=== PATIENT | female | born 2000 | race Caucasian/White ===

== ENCOUNTER 2020-05-22 17:45 | Inpatient (IN) | payer BC ==
[~2020-05-22 17:45] MED LIST: Bupivacaine 0.25% 10 ML SDV ONE
[2020-05-22] MEDS ORDERED: Sodium Chloride 0.9% 10 ML Syringe FLUSH PRN (18:02)
[2020-05-22] MEDS ORDERED: Ondansetron 4 MG/2 ML SDV IVPUSH PRN ×2 (18:02→18:46)
[2020-05-22] MEDS ORDERED: Nalbuphine 10 MG/1 ML Vial IVPUSH PRN (18:02)
[2020-05-22] MEDS ORDERED: Lactated Ringers 1,000 ML ONE (18:11)
[2020-05-22] MEDS: Lactated Ringers 1,000 ML IV SCH ×3 (18:12→19:30)
[2020-05-22] MEDS ORDERED: Oxytocin/Lactated Ringers 10 UNIT/1,000 ML BAG IV SCH (18:15)
[2020-05-22] MEDS ORDERED: fentaNYL 100 MCG/2 ML SDV EPIDUR PRN (18:46)
[2020-05-22] MEDS ORDERED: ePHEDrine 50 MG/ML SDV IVPUSH PRN (18:46)
--- NOTE | 2020-05-22 18:47 | PCM.PREANE ---
Preanesthetic Assessment - Procedure Proposed Procedure: Epidural vs Laboring Spinal - Anesthesia/Transfusion/Family Hx Anesthesia History: Prior Anesthesia Without Reaction Family History of Anesthesia Reaction: No Transfusion History: No Prior Transfusion(s) Intubation History: Unknown - Review of Systems General: No Symptoms Pulmonary: No Symptoms Cardiovascular: No Symptoms Gastrointestinal: No Symptoms (GERD) Neurological: No Symptoms Other: Reports: None - Physical Assessment NPO Status Date: 05/22/20 NPO Status Time: 17:30 Vital Signs: Last Vital Signs Temp 36.8 C 05/22/20 17:46 Pulse 81 05/22/20 17:46 Resp 16 05/22/20 17:46 BP 121/83 05/22/20 17:46 Pulse Ox 100 05/22/20 17:46 Height: 1.78 m Weight: 83.007 kg ASA Class: 2 Mental Status: Alert & Oriented x3 Airway Class: Mallampati = 2 Dentition: Reports: Normal Dentition, Caries Thyro-Mental Finger Breadths: 3 Mouth Opening Finger Breadths: 3 ROM/Head Extension: Full Lungs: Clear to Auscultation, Normal Respiratory Effort Cardiovascular: Regular Rate, Regular Rhythm, No Murmurs - Lab Values: Laboratory Last Values WBC 14.85 K/mm3 (3.98-10.04) H 05/22/20 18:20 RBC 4.56 M/mm3 (3.98-5.22) 05/22/20 18:20 Hgb 12.3 gm/dl (11.2-15.7) 05/22/20 18:20 Hct 38.8 % (34.1-44.9) 05/22/20 18:20 MCV 85.1 fl (79.4-94.8) 05/22/20 18:20 MCH 27.0 pg (25.6-32.2) 05/22/20 18:20 MCHC 31.7 g/dl (32.2-35.5) L 05/22/20 18:20 RDW Std Deviation 42.1 fL (36.4-46.3) 05/22/20 18:20 Plt Count 259 K/mm3 (182-369) 05/22/20 18:20 MPV 9.3 fl (9.4-12.3) L 05/22/20 18:20 Neut % (Auto) 81.5 % (34.0-71.1) H 05/22/20 18:20 Lymph % (Auto) 11.2 % (19.3-51.7) L 05/22/20 18:20 [place] % (Auto) 6.8 % (4.7-12.5) 05/22/20 18:20 Eos % (Auto) 0.1 (0.7-5.8) L 05/22/20 18:20 Baso % (Auto) 0.1 % (0.1-1.2) 05/22/20 18:20 Neut # (Auto) 12.10 K/mm3 (1.56-6.13) H 05/22/20 18:20 Lymph # (Auto) 1.66 K/mm3 (1.18-3.74) 05/22/20 18:20 [place] # (Auto) 1.01 K/mm3 (0.24-0.36) H 05/22/20 18:20 Eos # (Auto) 0.02 K/mm3 (0.04-0.36) L 05/22/20 18:20 Baso # (Auto) 0.01 K/mm3 (0.01-0.08) 05/22/20 18:20 Above labs reviewed and noted and within acceptable ranges to proceed with epidural/spinal as requested. - Allergies Allergies/Adverse Reactions: Allergies Allergy/AdvReac Type Severity Reaction Status Date / Time No Known Allergies Allergy Verified 05/22/20 17:50 - Anesthesia Plan Pre-Op Medication Ordered: None - Acknowledgements Anesthesia Type Planned: Spinal, Epidural Pt an Appropriate Candidate for the Planned Anesthesia: Yes Alternatives and Risks of Anesthesia Discussed w Pt/Guardian: Yes Pt/Guardian Understands and Agrees with Anesthesia Plan: Yes PreAnesthesia Questionnaire KAIAWHINA History: Reports: , Other (See Below) Other OB/BYN History: PCOS - Past Surgical History Musculoskeletal Surgical History: Reports: Other (See Below) Other Musculoskeletal Surgeries/Procedures:: collar bone surgery 2014 - SUBSTANCE USE Tobacco Use Status *Q: Never Tobacco User Recreational Drug Use History: No - HOME MEDS Home Medications: Home Meds Vits #93/Iron Fum/FA [ Formula Tablet] 05/22/20 [History] - CURRENT (IN HOUSE) MEDS Current Meds: Current Medications Lactated Ringer's (Ringers, Lactated) 1,000 mls @ 100 mls/hr IV ASDIRECTED MAX Last Admin: 05/22/20 18:12 Dose: 100 mls/hr Documented by: Oxytocin/Lactated Ringer's (Pitocin In Lr 10 Units/1,000 Ml) 10 unit in 1,000 mls @ 500 mls/hr IV .CONTINUOUS MAX Nalbuphine HCl (Nubain) 10 mg IVPUSH Q2H PRN PRN Reason: Pain Ondansetron HCl (Zofran) 4 mg IVPUSH Q4H PRN PRN Reason: Nausea/Vomiting Sodium Chloride (Saline Flush) 10 ml FLUSH ASDIRECTED PRN PRN Reason: Keep Vein Open Discontinued Medications Lactated Ringer's (Ringers, Lactated) Confirm Administered Dose 1,000 mls @ as directed .ROUTE .STK-MED ONE Stop: 05/22/20 18:12 Last Admin: 05/22/20 18:38 Dose: Not Given Documented by:
[2020-05-22] MEDS ORDERED: Bupivacaine/fentaNYL/NS 100 ML Bag EPIDUR SCH (19:00)
--- NOTE | 2020-05-22 19:32 | PCM.LDHP ---
L&D History of Present Illness - General Date of Service: 05/22/20 Admit Problem/Dx: Patient Status Order with Admit Dx/Problem 05/22/20 17:46 Patient Status [ADT] Routine 05/22/20 18:03 Patient Status [ADT] Routine Admission Diagnosis/Problem Admission Diagnosis/Problem - History of Present Illness Introduction:: 20 year old G1P) at 38w3d by LMP c/w 6 week ultrasound. Presents 9 cm in active labor. PNC with Dr Pantoja complicated PCOS and elevated one hour normal three hour. Pain Score: 8 - Related Data Allergies/Adverse Reactions: Allergies Allergy/AdvReac Type Severity Reaction Status Date / Time No Known Allergies Allergy Verified 05/22/20 17:50 Home Medications: Home Meds Vits #93/Iron Fum/FA [ Formula Tablet] 05/22/20 [History] Past Medical History [employer]CH[employer]PER[employer] History: Reports: , Other (See Below) Other OB/BYN History: PCOS - Past Surgical History Musculoskeletal Surgical History: Reports: Other (See Below) Other Musculoskeletal Surgeries/Procedures:: collar bone surgery 2014 Social & Family History - Tobacco Use Tobacco Use Status *Q: Never Tobacco User - Recreational Drug Use Recreational Drug Use: No H&P Review of Systems - Review of Systems: Review Of Systems: See Below General: Reports: No Symptoms HEENT: Reports: No Symptoms Pulmonary: Reports: No Symptoms Cardiovascular: Reports: No Symptoms Gastrointestinal: Reports: No Symptoms Genitourinary: Reports: No Symptoms Musculoskeletal: Reports: No Symptoms Skin: Reports: No Symptoms Psychiatric: Reports: No Symptoms Neurological: Reports: No Symptoms Hematologic/Lymphatic: Reports: No Symptoms Immunologic: Reports: No Symptoms L&D Exam - Exam Exam: See Below - Vital Signs Vital Signs: Last Vital Signs Temp 36.8 C 05/22/20 17:46 Pulse 81 05/22/20 17:46 Resp 16 05/22/20 17:46 BP 121/83 05/22/20 17:46 Pulse Ox 100 05/22/20 17:46 Weight: 83.007 kg - OB Specific Contraction Intensity: Moderate to Strong Movement: Active Heart Tones: Present Heart Rate (FHR) Variability: Moderate (6-25 bmp) Presentation: Vertex - Land Score Land Score Cervix Position: Anterior Land Score Consistency: Soft Land Score Effacement: >80% Land Score Dilation: > 5 cm Land Score 's Station: -3 Land Score Total: 10 - Exam General: Alert, Oriented HEENT: PERRLA, Conjunctiva Clear, EACs Clear, EOMI, Hearing Intact, Mucosa Moist & [place], Nares Patent, Normal Nasal Septum, Posterior Pharynx Clear, TMs Clear Neck: Supple, Trachea Midline Lungs: Clear to Auscultation, Normal Respiratory Effort Cardiovascular: Regular Rate, Regular Rhythm GI/Abdominal Exam: Normal Bowel Sounds, Soft, Non-Tender, No Organomegaly, No Distention, No Abnormal Bruit, No Mass, Pelvis Stable Rectal Exam: Normal Exam, Normal Rectal Tone Extremities: Normal Inspection Skin: Warm, Dry, Intact Neurological: Cranial Nerves Intact, Reflexes Equal Bilateral Psychiatric: Alert, Normal Affect, Normal Mood - Patient Data Lab Results Last 24 hrs: Laboratory Results - last 24 hr 05/22/20 05/22/20 Range/Units 18:06 18:20 WBC 14.85 H (3.98-10.04) K/mm3 RBC 4.56 (3.98-5.22) M/mm3 Hgb 12.3 (11.2-15.7) gm/dl Hct 38.8 (34.1-44.9) % MCV 85.1 (79.4-94.8) fl MCH 27.0 (25.6-32.2) pg MCHC 31.7 L (32.2-35.5) g/dl RDW Std Deviation 42.1 (36.4-46.3) fL Plt Count 259 (182-369) K/mm3 MPV 9.3 L (9.4-12.3) fl Neut % (Auto) 81.5 H (34.0-71.1) % Lymph % (Auto) 11.2 L (19.3-51.7) % [place] % (Auto) 6.8 (4.7-12.5) % Eos % (Auto) 0.1 L (0.7-5.8) Baso % (Auto) 0.1 (0.1-1.2) % Neut # (Auto) 12.10 H (1.56-6.13) K/mm3 Lymph # (Auto) 1.66 (1.18-3.74) K/mm3 [place] # (Auto) 1.01 H (0.24-0.36) K/mm3 Eos # (Auto) 0.02 L (0.04-0.36) K/mm3 Baso # (Auto) 0.01 (0.01-0.08) K/mm3 SARS-CoV-2 RNA (MONY) Negative (NEGATIVE) Result Diagrams: 05/22/20 18:20 Problem List Initiated/Reviewed/Updated: Yes Orders Last 24hrs: Active Orders 24 hr Category Date Time Status Patient Status [ADT] Routine ADT 05/22/20 18:03 Active Activity as Tolerated [RC] PFP Care 05/22/20 18:02 Active Communication Order [RC] ASDIRECTED Care 05/22/20 18:02 Active Heart Tones [RC] ASDIRECTED Care 05/22/20 18:03 Active Non Stress Test [RC] PER UNIT ROUTINE Care 05/22/20 17:46 Active Notify Provider [RC] ASDIRECTED Care 05/22/20 18:46 Active Notify Provider [RC] PFP Care 05/22/20 18:02 Active Notify Provider [RC] PRN Care 05/22/20 18:02 Active Oxygen Therapy [RC] ASDIRECTED Care 05/22/20 18:45 Active Peripheral IV Care [RC] . DIRECTED Care 05/22/20 18:03 Active Pulse Oximetry [RC] ASDIRECTED Care 05/22/20 18:45 Active Vital Signs [RC] PER UNIT ROUTINE Care 05/22/20 17:46 Active BLOOD BANK HOLD SPECIMEN [BBK] Stat Lab 05/22/20 18:02 Ordered RAPID PLASMA REAGIN,RPR [CHEM] Routine Lab 05/22/20 18:20 Received Bupivacaine/fentaNYL/NS [fentaNYL/Bupivacaine/NS 2 MCG- Med 05/22/20 19:00 Active 0.125% 100 ML] 100 ml EPIDUR ASDIRECTED Lactated Ringers [Ringers, Lactated] 1,000 ml Med 05/22/20 18:15 Active IV ASDIRECTED Nalbuphine [Nubain] Med 05/22/20 18:02 Active 10 mg IVPUSH Q2H PRN Ondansetron [Zofran] Med 05/22/20 18:46 Active 4 mg IVPUSH ONETIME PRN Ondansetron [Zofran] Med 05/22/20 18:02 Active 4 mg IVPUSH Q4H PRN Oxytocin/Lactated Ringers [Pitocin in LR 10 Units/1,000 Med 05/22/20 18:15 Active ML] 10 unit in 1,000 ml IV .CONTINUOUS Sodium Chloride 0.9% [Saline Flush] Med 05/22/20 18:02 Active 10 ml FLUSH ASDIRECTED PRN ePHEDrine [ePHEDrine sulfate] Med 05/22/20 18:46 Active 5 mg IVPUSH ASDIRECTED PRN fentaNYL [Sublimaze] Med 05/22/20 18:46 Active 100 mcg EPIDUR Q3H PRN Electronic Heart Tones Ext w TOCO [WOMSER] Oth 05/22/20 18:02 Ordered Routine Electronic Heart Tones Internal [WOMSER] Per Unit Ot 05/22/20 18:02 Ordered Routine Peripheral IV Insertion Adult [OM.PC] Routine Ot 05/22/20 18:02 Ordered Resuscitation Status Routine Resus Stat 05/22/20 17:46 Ordered Medication Orders Ephedrine Sulfate (Ephedrine Sulfate) 5 mg IVPUSH ASDIRECTED PRN PRN Reason: Hypotension Fentanyl (Sublimaze) 100 mcg EPIDUR Q3H PRN PRN Reason: Pain Last Admin: 05/22/20 18:54 Dose: 100 mcg Documented by: ERIN Fentanyl/Bupivacaine HCl (Fentanyl/Bupivacaine/Ns 2 Mcg-0.125% 100 Ml) 100 ml EPIDUR ASDIRECTED MAX Lactated Ringer's (Ringers, Lactated) 1,000 mls @ 100 mls/hr IV ASDIRECTED MAX Last Admin: 05/22/20 18:53 Dose: 999 mls/hr Documented by: Infusion: 05/22/20 18:53 Dose: 100 mls/hr Documented by: Admin: 05/22/20 18:12 Dose: 100 mls/hr Documented by: DELMY Oxytocin/Lactated Ringer's (Pitocin In Lr 10 Units/1,000 Ml) 10 unit in 1,000 mls @ 500 mls/hr IV .CONTINUOUS MAX Nalbuphine HCl (Nubain) 10 mg IVPUSH Q2H PRN PRN Reason: Pain Ondansetron HCl (Zofran) 4 mg IVPUSH Q4H PRN PRN Reason: Nausea/Vomiting Ondansetron HCl (Zofran) 4 mg IVPUSH ONETIME PRN PRN Reason: Nausea/Vomiting Sodium Chloride (Saline Flush) 10 ml FLUSH ASDIRECTED PRN PRN Reason: Keep Vein Open Assessment/Plan Comment:: Term labor. EFW 7#. Spinal in place. Anticipate .
[2020-05-22] MEDS ORDERED: Calcium Carbonate 500 MG Tab.Chew PO ONE (21:50)
[2020-05-22] MEDS ORDERED: Lidocaine 1% 50 ML MDV ONE (23:06)
[2020-05-22] MEDS ORDERED: Lidocaine 1% 50 ML MDV INJECT ONE (23:15)
--- NOTE | 2020-05-22 23:37 | PCM.SN.2 ---
- Free Text/Narrative Note: Stage I - patient presented in active labor. 9 cm. Spinal placed. Progressed to complete with reassuring heart tones. Stage II - of viable male, weight pending, 9/9 APGARS at 2311. Head delivered in controlled manner over intact perineum. Body and shoulders atraumatically. Positive cry. To maternal abdomen. Stage III - Placenta delivered. Cord clamped and cut. Cord blood collected. 3vc. Small 2nd degree laceration repaired with 3-0 vicryl. EBL 300
[2020-05-22] MEDS ORDERED: Witch Hazel Medicated Pads 40/Jar TOP PRN (23:49)
[2020-05-22] MEDS ORDERED: Benzocaine/Menthol 20%-0.5% Spray 56 GM Canister TOP PRN (23:49)
[2020-05-23] MEDS: Ibuprofen 600 MG Tab PO PRN ×3 (01:00→15:03)
--- NOTE | 2020-05-23 07:36 | PCM48HPAN ---
Post Anesthesia Note - EVALUATION WITHIN 48HRS OF ANESTHETIC Vital Signs in Normal Range: Yes Patient Participated in Evaluation: Yes Respiratory Function Stable: Yes Airway Patent: Yes Cardiovascular Function Stable: Yes Hydration Status Stable: Yes Pain Control Satisfactory: Yes Nausea and Vomiting Control Satisfactory: Yes Mental Status Recovered: Yes Vital Signs: Last Vital Signs Temp 36.7 C 05/23/20 02:54 Pulse 72 05/23/20 02:54 Resp 16 05/23/20 02:54 BP 129/89 05/23/20 02:54 Pulse Ox 94 L 05/23/20 02:54 - COMMENTS/OBSERVATIONS Free Text/Narrative:: no anesthesia complications noted
[2020-05-23] MEDS: Docusate Sodium 100 MG Cap PO PRN (17:12)
--- NOTE | 2020-05-23 19:21 | PCM.SN.2 ---
- Free Text/Narrative Note: 1899 called to room to assess for spinal headache. Encouraged patient to drink lots of fluids and caffeine if headache persists. At the moment patient states,"headache is gone." This after drinking a Coke and a few glasses of water. Currently patient sitting up in bed with no complains of. Lots of education provided. Out of room at 191.
--- NOTE | 2020-05-24 09:47 | PCM.SN.2 ---
- Free Text/Narrative Note: Post Progress Note PPD #1 Late entry note from 05/23/2020 Subjective: Doing well overall. Ambulating minimally and slowly with pain with getting up. Lochia minimal. Voiding without difficulty. Tolerating regular diet without nausea or vomiting. Pain minimal at this time and able to be controlled with or al medications. Breast-feeding with minimal difficulty. Objective: Vitals: 05/22/20 05/22/20 05/22/20 19:30 20:01 20:32 Temperature Temperature [ Temporal] Pulse, 79 69 71 Peripheral Pulse, Peripheral [ Pulse Oximetry] Respiratory Rate Blood Pressure 91/61 104/62 103/64 Blood Pressure [Upper Arm] O2 Sat by Pulse Oximetry 05/22/20 05/22/20 05/22/20 21:00 23:19 23:31 Temperature Temperature [ Temporal] Pulse, 60 86 114 H Peripheral Pulse, Peripheral [ Pulse Oximetry] Respiratory Rate Blood Pressure 111/69 103/68 96/23 L Blood Pressure [Upper Arm] O2 Sat by Pulse Oximetry 05/23/20 05/23/20 05/23/20 00:01 02:54 08:07 Temperature 36.7 C 36.4 C Temperature [ Temporal] Pulse, 85 72 73 Peripheral Pulse, Peripheral [ Pulse Oximetry] Respiratory 16 16 Rate Blood Pressure 136/92 H 129/89 99/81 Blood Pressure [Upper Arm] O2 Sat by Pulse 94 L 100 Oximetry Physical Exam General: Alert and oriented, no acute distress Lungs: Unlabored breathing Heart: Regular rate ASSESSMENT: 20-year-old female -0-0-1 s/p normal vaginal delivery PPD #1, complicated by polycystic ovarian syndrome and elevated 1 hour glucose tolerance test with normal 3-hour glucose tolerance test PLAN: Doing well Breast-feeding with minimal difficulty. Assist as needed Lochia minimal. Continue to monitor for appropriate lochia. Continue routine care Anticipate discharge home tomorrow This is a late entry note from patient being seen on 05/23/2020 Wally Pantoja MD 9:45 AM 05/24/2020
--- NOTE | 2020-05-24 09:52 | PCM.SN.2 ---
- Free Text/Narrative Note: Post Progress Note PPD #2 Subjective: Doing well overall and feels like she is doing better since yesterday. Ambulating more easily today. Lochia minimal. Voiding without difficulty. Reports that she is passing flatus without having a bowel movement at this time. Tolerating regular diet without nausea or vomiting. Pain controlled with oral medications. Breast-feeding with minimal difficulty. Objective: Vitals: Vital Signs - 24 hr 05/23/20 05/23/20 05/24/20 16:33 19:25 03:23 Temperature 36.6 C 36.7 C 37.1 C Pulse, 71 79 70 Peripheral Respiratory 16 16 14 Rate Blood Pressure 100/57 L 112/75 110/71 O2 Sat by Pulse 98 100 98 Oximetry Physical Exam General: Alert and oriented, no acute distress Lungs: Clear to auscultation bilaterally Heart: Regular rate and rhythm Abdomen: Soft, minimal appropriate tenderness, non-distended, fundus midline, nontender, and 1 fingerbreadth below the umbilicus Extremities: No edema ASSESSMENT: 20-year-old female -0-0-1 s/p normal vaginal delivery PPD #2, complicated by history of polycystic ovarian syndrome and elevated 1 hour glucose tolerance test with normal 3-hour glucose tolerance test PLAN: Doing well Breast-feeding with minimal difficulty. Assist as needed Lochia minimal. Continue to monitor for appropriate lochia. Continue routine care Anticipate discharge home today Wally Pantoja MD 9:49 AM 05/24/2020
[2020-05-24] MEDS: Docusate Sodium 100 MG Cap PO PRN (09:56)
--- NOTE | 2020-05-24 10:05 | PCM.DCSUM1 ---
Discharge Summary - Hospital Course Free Text/Narrative:: Stage I - patient presented in active labor. 9 cm. Spinal placed. Progressed to complete with reassuring heart tones. Stage II - of viable male, weight pending, 9/ APGARS at 2311. Head delivered in controlled manner over intact perineum. Body and shoulders atraumatically. Positive cry. To maternal abdomen. Stage III - Placenta delivered. Cord clamped and cut. Cord blood collected. 3vc. Small 2nd degree laceration repaired with 3-0 vicryl. EBL 300 Diagnosis: Stroke: No - Discharge Data Discharge Date: 05/24/20 Discharge Disposition: Home, Self-Care 01 Condition: Good - Referral to Home Health Primary Care Physician: Wally Pantoja MD - Discharge Diagnosis/Problem(s) (1) 38 weeks gestation of SNOMED Code(s): 22286122 ICD Code: Z3A.38 - 38 WEEKS GESTATION OF Status: Acute Current Visit: Yes (2) PCOS (polycystic ovarian syndrome) SNOMED Code(s): 424663880 ICD Code: E28.2 - POLYCYSTIC OVARIAN SYNDROME Status: Acute Current Visit: Yes (3) Vaginal delivery SNOMED Code(s): 052988087 ICD Code: O80 - ENCOUNTER FOR FULL-TERM UNCOMPLICATED DELIVERY Status: Acute Current Visit: Yes (4) Second degree perineal laceration during delivery SNOMED Code(s): 3287436 ICD Code: O70.1 - SECOND DEGREE PERINEAL LACERATION DURING DELIVERY Status: Acute Current Visit: Yes - Patient Summary/Data Complications: None Consults: None Hospital Course: Sweta Tran was admitted for advanced labor. On admission her cervix was dilated to 9 cm. She was GBS negative. She was given a spinal injection for anesthesia. She had artificial rupture of membranes with clear fluid. She progressed to complete and began pushing. On 05/22/2020 she had a normal vaginal delivery of a live male infant at 23:11. Apgars of 9 and 9. Weight of 3470 g (7 pounds 10.4 ounces). Her course was uneventful. Her pain was well controlled and she had minimal lochia. She was ambulating, tolerating a regular diet and voiding normally. She was breast-feeding with minimal difficulty. She was afebrile and her hematocrit was 38.8 on admission. She desired to be discharged home on the morning of PPD #2. Her blood type is B+. - Patient Instructions Diet: Regular Diet as Tolerated Activity: Apply Ice, As Tolerated Activity, Other: Nothing in the vagina for 6 weeks Driving: May Drive Today Showering/Bathing: May Shower Notify Provider of: Fever, Increased Pain, Swelling and Redness, Drainage, Nausea and/or Vomiting Other/Special Instructions: Please contact your physician's office if you have heavy vaginal bleeding enough to soak a pad in less than an hour for several hours. Monitor for any signs of an infection in the breasts with severe pain or redness of the breast. - Discharge Plan *PRESCRIPTION DRUG MONITORING PROGRAM REVIEWED*: Not Applicable *COPY OF PRESCRIPTION DRUG MONITORING REPORT IN PATIENT DARINEL: Not Applicable Home Medications: Home Meds Vits #93/Iron Fum/FA [ Formula Tablet] 05/22/20 [History] Benzocaine/Menthol [Dermoplast Pain Relief [place]] 1 spray TOP ASDIRECTED PRN canister 05/24/20 [Rx] Docusate Sodium [Colace] 100 mg PO BID PRN cap 05/24/20 [Rx] Ibuprofen [Motrin] 600 mg PO Q6H PRN tablet 05/24/20 [Rx] witch Dionne [Tucks] 1 pad TOP ASDIRECTED PRN pad 05/24/20 [Rx] Patient Handouts: , Care of a Perineal Tear, Care After Vaginal Delivery, Eating Plan for Women Referrals: Wally Pantoja MD [Primary Care Provider] - (Follow-up in 2 weeks for routine visit or earlier as needed.) - Discharge Summary/Plan Comment DC Time >30 min.: No - Patient Data Vitals - Most Recent: Last Vital Signs Temp 37.1 C 05/24/20 03:23 Pulse 70 05/24/20 03:23 Resp 14 05/24/20 03:23 BP 110/71 05/24/20 03:23 Pulse Ox 98 05/24/20 03:23 Weight - Most Recent: 83.007 kg I&O - Last 24 hours: Intake & Output 05/23/20 05/24/20 05/24/20 22:59 06:59 14:59 Intake Total 360 Balance 360 Lab Results - Last 24 hrs: Laboratory Results - last 24 hr 05/22/20 Range/Units 18:20 RPR Non-reactive (NONREACTIVE) Med Orders - Current: Current Medications Benzocaine/Menthol (Dermoplast Pain Relief [place]) 0 gm TOP ASDIRECTED PRN PRN Reason: Perineal Comfort Measure Last Admin: 05/23/20 00:14 Dose: 56 gm Documented by: Docusate Sodium (Colace) 100 mg PO BID PRN PRN Reason: Constipation Last Admin: 05/24/20 09:56 Dose: 100 mg Documented by: Ibuprofen (Motrin) 600 mg PO Q6H PRN PRN Reason: Mild pain or fever Last Admin: 05/23/20 15:03 Dose: 600 mg Documented by: Colleen Bass (Tucks) 1 pad TOP ASDIRECTED PRN PRN Reason: Pain Last Admin: 05/23/20 00:14 Dose: 1 container Documented by: Discontinued Medications Bupivacaine HCl (Sensorcaine-Mpf 0.25%) 10 ml .ROUTE .STK-MED ONE Stop: 05/22/20 00:01 Calcium Carbonate/Glycine (Tums) 1,000 mg PO ONETIME ONE Stop: 05/22/20 21:51 Last Admin: 05/22/20 21:50 Dose: 1,000 mg Documented by: Ephedrine Sulfate (Ephedrine Sulfate) 5 mg IVPUSH ASDIRECTED PRN PRN Reason: Hypotension Fentanyl (Sublimaze) 100 mcg EPIDUR Q3H PRN PRN Reason: Pain Last Admin: 05/22/20 18:54 Dose: 100 mcg Documented by: Fentanyl/Bupivacaine HCl (Fentanyl/Bupivacaine/Ns 2 Mcg-0.125% 100 Ml) 100 ml EPIDUR ASDIRECTED MAX Lactated Ringer's (Ringers, Lactated) 1,000 mls @ 100 mls/hr IV ASDIRECTED MAX Last Admin: 05/22/20 19:30 Dose: 999 mls/hr Documented by: Oxytocin/Lactated Ringer's (Pitocin In Lr 10 Units/1,000 Ml) 10 unit in 1,000 mls @ 500 mls/hr IV .CONTINUOUS MAX Last Admin: 05/22/20 23:15 Dose: 500 mls/hr Documented by: Lactated Ringer's (Ringers, Lactated) Confirm Administered Dose 1,000 mls @ as directed .ROUTE .STK-MED ONE Stop: 05/22/20 18:12 Last Admin: 05/22/20 18:38 Dose: Not Given Documented by: Lidocaine HCl (Xylocaine 1%) Confirm Administered Dose 50 ml .ROUTE .STK-MED ONE Stop: 05/22/20 23:07 Last Admin: 05/23/20 00:15 Dose: Not Given Documented by: Lidocaine HCl (Xylocaine 1%) 50 ml INJECT ONETIME ONE Stop: 05/22/20 23:16 Last Admin: 05/22/20 23:15 Dose: 50 ml Documented by: Miscellaneous Medication (Phenylephrine 1 Mg/10 Ml-Ns) 0 mg IVPUSH ONETIME ONE Stop: 05/22/20 18:47 Last Admin: 05/23/20 00:15 Dose: Not Given Documented by: Nalbuphine HCl (Nubain) 10 mg IVPUSH Q2H PRN PRN Reason: Pain Ondansetron HCl (Zofran) 4 mg IVPUSH Q4H PRN PRN Reason: Nausea/Vomiting Last Admin: 05/22/20 19:30 Dose: 4 mg Documented by: Ondansetron HCl (Zofran) 4 mg IVPUSH ONETIME PRN PRN Reason: Nausea/Vomiting Sodium Chloride (Saline Flush) 10 ml FLUSH ASDIRECTED PRN PRN Reason: Keep Vein Open
== END 2020-05-24 11:20 | disposition home or self-care (01) | DRG 560 ==
LOC: JD.OBCHECK 17:45 → JD.OB 17:47 → JD.OBCHECK 18:03 → OBSVTOIN 23:11 → JD.OB 23:22
PROVIDERS: ADMIT Obstetrics & Gynecology; ATTEND Obstetrics & Gynecology
PROC: 10E0XZZ Delivery of Products of Conception, External Approach (ICD-10-PCS; principal; 2020-05-22)
PROC: 0KQM0ZZ Repair Perineum Muscle, Open Approach (ICD-10-PCS; 2020-05-22)
PROC: 3E0R3BZ Introduction of Anesthetic Agent into Spinal Canal, Percutaneous Approach (ICD-10-PCS; 2020-05-22)
DX: O99.284 Endocrine, nutritional and metabolic diseases complicating childbirth (principal); E28.2 Polycystic ovarian syndrome; O70.1 Second degree perineal laceration during delivery; Z37.0 Single live birth; Z3A.38 38 weeks gestation of pregnancy; Z20.828 Contact with and (suspected) exposure to other viral communicable diseases
CPT/HCPCS: 01967; 36415; 51701; 59025; 59409; 85025; 86592; A9270-GY; J2001; J2405; J2590; J3010; J3490; J7120; U0002

== ENCOUNTER 2020-05-25 13:31 | Emergency (ER) | payer BC ==
[2020-05-25] MEDS ORDERED: Lactated Ringers 1,000 ML IV ONE (14:14)
--- NOTE | 2020-05-25 14:23 | EDM.PDOC ---
ED HPI GENERAL MEDICAL PROBLEM - General Chief Complaint: Headache Stated Complaint: HEADACHE Time Seen by Provider: 05/25/20 13:40 Source of Information: Reports: Patient History Limitations: Reports: No Limitations - History of Present Illness INITIAL COMMENTS - FREE TEXT/NARRATIVE: 20-year-old female presents to the emergency department complaints of headache pain. Patient states she had a vaginal delivery on the of this month, 3 days ago. She was discharged to home yesterday. At that time she did have a headache and did speak to the NON PROFIT DIRECTOR regarding this she states that the NON PROFIT DIRECTOR told her to go home and drink a lot of water and caffeine and take ibuprofen. She said that since she has not drink much caffeine as she is breast-feeding and she does not want it to affect the baby, but has been drinking as much water as possible and has been taking ibuprofen however it has not helped at all. Patient states that she does not notice a headache when she is laying in bed however when she sits up or stands up she has severe headache pain behind her eyes and on the top of her head. Patient states she is not able to get anything done and is tearful at this time. Denies any other complaints. Headache Pain Score (Numeric/FACES): 9 - Related Data Allergies Allergy/AdvReac Type Severity Reaction Status Date / Time No Known Allergies Allergy Verified 05/22/20 17:50 Home Meds: Home Meds Vits #93/Iron Fum/FA [ Formula Tablet] 1 tab PO DAILY 05/22/20 [History] Benzocaine/Menthol [Dermoplast Pain Relief [place]] 1 spray TOP ASDIRECTED PRN canister 05/24/20 [Rx] Ibuprofen [Motrin] 600 mg PO Q6H PRN tablet 05/24/20 [Rx] witch Dionne [Tucks] 1 pad TOP ASDIRECTED PRN pad 05/24/20 [Rx] Past Medical History PRICING COORDINATOR History: Reports: , Other (See Below) Other PRICING COORDINATOR History: PCOS - Past Surgical History Musculoskeletal Surgical History: Reports: Other (See Below) Other Musculoskeletal Surgeries/Procedures:: collar bone surgery 2014 Social & Family History - Tobacco Use Tobacco Use Status *Q: Never Tobacco User - Caffeine Use Caffeine Use: Reports: None - Recreational Drug Use Recreational Drug Use: No ED ROS GENERAL - Review of Systems Review Of Systems: See Below Constitutional: Reports: No Symptoms HEENT: Reports: No Symptoms. Denies: Vision Change Respiratory: Reports: No Symptoms Cardiovascular: Reports: No Symptoms Endocrine: Reports: No Symptoms GI/Abdominal: Reports: No Symptoms : Reports: No Symptoms Musculoskeletal: Reports: No Symptoms Skin: Reports: No Symptoms Neurological: Reports: Headache. Denies: Numbness, Syncope, Tingling, Difficulty Walking Psychiatric: Reports: No Symptoms Hematologic/Lymphatic: Reports: No Symptoms Immunologic: Reports: No Symptoms - Physical Exam Exam: See Below Exam Limited By: No Limitations General Appearance: Alert, WD/WN, No Apparent Distress Eye Exam: Bilateral Eye: PERRL Ears: Hearing Grossly Normal Nose: Normal Inspection Throat/Mouth: Normal Voice, No Airway Compromise Head Exam: Atraumatic, Normocephalic Neck: Normal Inspection, Supple, Non-Tender, Full Range of Motion Respiratory/Chest: No Respiratory Distress, Lungs Clear, Normal Breath Sounds, No Accessory Muscle Use, Chest Non-Tender Cardiovascular: Normal Peripheral Pulses, Regular Rate, Rhythm, No Edema, No Murmur GI/Abdominal: Normal Bowel Sounds, Soft, Non-Tender, No Distention (Female) Exam: Deferred Rectal (Female) Exam: Deferred Neuro Exam (Abbreviated): Alert, Oriented, Normal Cognition, No Motor/Sensory Deficits Back Exam: Normal Inspection, Full Range of Motion Extremities: Normal Inspection, Normal Range of Motion, Non-Tender, No Pedal Edema, Normal Capillary Refill Psychiatric: Normal Affect, Normal Mood Skin Exam: Warm, Dry, Intact, Normal Color, No Rash Course - Vital Signs Text/Narrative:: I have spoken with anesthesia regarding the need for a blood patch for the patient. They state they will be over to assess the patient and request that I order lactated Ringer's at a wide open rate. Last Recorded V/S: Last Vital Signs Temp 97.0 F 05/25/20 15:09 Pulse 62 05/25/20 15:09 Resp 16 05/25/20 15:09 BP 113/63 05/25/20 15:09 Pulse Ox 99 05/25/20 15:09 - Orders/Labs/Meds Meds: Medications Discontinued Medications Generic Name Dose Route Start Last Admin Trade Name Freq PRN Reason Stop Dose Admin Lactated Ringer's 1,000 mls @ 999 mls/hr 05/25/20 14:14 05/25/20 14:21 Ringers, Lactated IV 05/25/20 15:14 999 mls/hr .BOLUS ONE Administration - Re-Assessments/Exams Free Text/Narrative Re-Assessment/Exam: 05/25/20 15:38 NON PROFIT DIRECTOR performed a blood patch on the patient. Patient states that she felt almost immediate relief. Will allow the patient to be discharged to home once she has been monitored for an hour. Departure - Departure Time of Disposition: 15:39 Disposition: Home, Self-Care 01 Condition: Good Clinical Impression: Spinal headache - Discharge Information Instructions: Spinal Headache Referrals: Wally Pantoja MD [Primary Care Provider] - Forms: ED Department Discharge Additional Instructions: You were seen in the emergency department with complaints of headache pain that started after receiving spinal anesthesia. NON PROFIT DIRECTOR performed a procedure called a blood patch. You should notice a reduction in your headache pain although it is possible it won't completely go away. Continue to drink lots of water and take ibuprofen as needed for headache pain. Be sure to take ibuprofen with food. You can also take Tylenol 650mg every 6 hours as needed for headache pain. Be sure to take it easy at home for the next 24 hours. Please return to the emergency department should your condition worsen or change. Sepsis Event Note (ED) - Evaluation Sepsis Screening Result: No Definite Risk - Focused Exam Vital Signs: Vital Signs Temp Pulse Resp BP Pulse Ox 05/25/20 15:09 97.0 F 62 16 113/63 99 05/25/20 13:47 96.8 F L 65 20 115/74 100
--- NOTE | 2020-05-25 15:20 | PCM.SN.2 ---
- Free Text/Narrative Note: 05/25/20 [id number] to Dr barksdale. Patient had vaginal delivery 05/22/20 with spinal anesthesia for labor and delivery. patient has severe headache when up and around mostly top of head and behind her eyes. Patient is teary eyed and wants treatment. Epidural blood patch procedure and complications discussed with patient and she wishes to proceed. IV LR infusing rapidly. Sitting up in bed. Sterile prep and drape. 17 g tuoy needle advanced with MAREK techinique. 5 cm to space. Blood 20 ml drawn per Neda PEREZ right antecubital per sterile technique. 20 ml blood slowly injected into epidural needle. Patient denies any discomfort. Procedure ended. Patient tolerated procedure well. Supine after and will lay supine times 1 hour before discharge. IV will have infused 1000 ml by time of discharge. Patient states while lying down back is kind of sore. Reassured that this is normal. Encouraged to take it easy at home for 24 hours at least and to call the hospital with any problems and they can contact anesthesia. Patient rests. [place]
== END 2020-05-25 16:20 | disposition home or self-care (01) ==
LOC: SUPCPDRO 13:31 → JD.ED 13:31
DX: O89.4 Spinal and epidural anesthesia-induced headache during the puerperium (principal)
CPT/HCPCS: 62273; 99283; J7120